=== PATIENT | male | born 1995 | race Caucasian/White ===

== ENCOUNTER 2017-04-25 16:33 | Emergency (ER) | payer BC ==
[~2017-04-25] VITALS: Ht 167.6 cm; Wt 75.0 kg
[2017-04-25 16:50] VITALS: BP 129/69; PULSE 84; RESP 20; TEMP 98; O2SAT 98
--- NOTE | 2017-04-25 16:53 | PD ---
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 This episode was witnessed. Patient passed out suddenly without doing any specific heavy work, and had syncope for approximately 2-3 minutes. No witnessed seizure activity. Patient states he had a similar episode approximately 4 weeks ago and was evaluated at [facility]. He states he saw a neurologist who thought he had "PTO ". States his brother has a similar issue. He was told to eat more salt, and push fluids. 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 He currently takes no medications. He states he did not hurt himself while having his syncopal episode. Patient was brought in by ambulance after receiving IV and 500 mL's normal saline. He has no known drug allergies. [facility] Social History Alcohol Use: Yes Tobacco Use: No Substance Use: No Allergies-Medications (Allergen,Severity, Reaction): Coded Allergies: No Known Allergies (Verified Allergy, Unknown, 04/25/17) Reported Meds & Prescriptions Reported Meds & Active Scripts Active Reported Albuterol Neb (Albuterol Sulfate) 0.63 Mg/3 Ml Neb Unknown Dose NEB BID PRN Zyprexa (Olanzapine) 10 Mg Tab 10 Mg PO HS Hydroxyzine HCl 25 Mg Tab 25 Mg PO BID Trazodone (Trazodone HCl) 50 Mg Tab 50 Mg PO HS Review of Systems Except as stated in HPI: all other systems reviewed are Neg General / Constitutional: No: Fever Eyes: No: Visual changes HENT: No: Headaches Cardiovascular: No: Chest Pain or Discomfort Respiratory: No: Shortness of Breath Gastrointestinal: No: Abdominal Pain Genitourinary: No: Dysuria Musculoskeletal: No: Pain Skin: No Rash Neurologic: Positive: Syncope (see history present illness.), No: Weakness Psychiatric: No: Depression Endocrine: No: Polydipsia Hematologic/Lymphatic: No: Easy Bruising Physical Exam Narrative GENERAL: Patient appears normal and in no acute distress. SKIN: Warm and dry. Normal color. Normal turgor. No diaphoresis. HEAD: Atraumatic. Normocephalic. Nontender. EYES: Pupils equal and round. No scleral icterus. No injection or drainage. ENT: No nasal bleeding or discharge. Mucous membranes pink and moist. Pharynx is clear. Airway is patent. There is no dental injury. There is no injury to the buccal membrane or tongue. NECK: Trachea midline. Nontender. No bony tenderness or step-off. There is full and non-tender. CARDIOVASCULAR: Regular rate and rhythm. No murmurs gallops or rubs appreciated. RESPIRATORY: No accessory muscle use. Clear to auscultation. Breath sounds equal bilaterally. GASTROINTESTINAL: Abdomen soft, non-tender, nondistended. Hepatic and splenic margins not palpable. MUSCULOSKELETAL: Extremities without clubbing, cyanosis, or edema. No obvious deformities. NEUROLOGICAL: Awake and alert. No obvious cranial nerve deficits. Motor grossly within normal limits. Five out of 5 muscle strength in the arms and legs. Normal speech. PSYCHIATRIC: Appropriate mood and affect; insight and judgment normal. Data Data Last Documented VS Vital Signs Date Time Temp Pulse Resp B/P Pulse Ox O2 Delivery O2 Flow Rate FiO2 04/25/17 17:02 77 20 105/54 77 20 132/75 04/25/17 17:01 98 Room Air 04/25/17 16:50 98.0 Orders Electrocardiogram (04/25/17 17:04) Complete Blood Count With Diff (04/25/17 17:04) Comprehensive Metabolic Panel (04/25/17 17:04) Magnesium (Mg) (04/25/17 17:04) Ckmb (Isoenzyme) Profile (04/25/17 17:04) Troponin I (04/25/17 17:04) Urinalysis - C+S If Indicated (04/25/17 17:04) Chest, Single Ap (04/25/17 17:04) Ecg Monitoring (04/25/17 17:04) Iv Access Insert/Monitor (04/25/17 17:04) Oximetry (04/25/17 17:04) Sodium Chloride 0.9% Flush (Ns Flush) (04/25/17 17:15) Sodium Chlor 0.9% 1000 Ml Inj (Ns 1000 M (04/25/17 17:04) Orthostatic Vital Signs (04/25/17 17:04) Labs Laboratory Tests Test 04/25/17 04/25/17 17:30 18:01 White Blood Count 8.9 TH/MM3 Red Blood Count 4.24 MIL/MM3 Hemoglobin 13.4 GM/DL Hematocrit 39.5 % Mean Corpuscular Volume 93.3 FL Mean Corpuscular Hemoglobin 31.6 PG Mean Corpuscular Hemoglobin 33.9 % Concent Red Cell Distribution Width 13.0 % Platelet Count 247 TH/MM3 Mean Platelet Volume 6.8 FL Neutrophils (%) (Auto) 66.0 % Lymphocytes (%) (Auto) 22.7 % Monocytes (%) (Auto) 9.1 % Eosinophils (%) (Auto) 1.8 % Basophils (%) (Auto) 0.4 % Neutrophils # (Auto) 5.9 TH/MM3 Lymphocytes # (Auto) 2.0 TH/MM3 Monocytes # (Auto) 0.8 TH/MM3 Eosinophils # (Auto) 0.2 TH/MM3 Basophils # (Auto) 0.0 TH/MM3 CBC Comment DIFF FINAL Differential Comment Sodium Level 139 MEQ/L Potassium Level 4.0 MEQ/L Chloride Level 107 MEQ/L Carbon Dioxide Level 25.9 MEQ/L Anion Gap 6 MEQ/L Blood Urea Nitrogen 15 MG/DL Creatinine 0.78 MG/DL Estimat Glomerular Filtration 124 ML/MIN Rate Random Glucose 87 MG/DL Calcium Level 7.9 MG/DL Magnesium Level 2.0 MG/DL Total Bilirubin 0.3 MG/DL Aspartate Amino Transf 11 U/L (AST/SGOT) Alanine Aminotransferase 28 U/L (ALT/SGPT) Alkaline Phosphatase 73 U/L Total Creatine Kinase 65 U/L Troponin I LESS THAN 0.02 NG/ML Total Protein 6.7 GM/DL Albumin 3.6 GM/DL Urine Color YELLOW Urine Turbidity CLEAR Urine pH 5.5 Urine Specific [place] 1.014 Urine Protein NEG mg/dL Urine Glucose (UA) NEG mg/dL Urine Ketones NEG mg/dL Urine Occult Blood NEG Urine Nitrite NEG Urine Bilirubin NEG Urine Urobilinogen LESS THAN 2.0 MG/DL Urine Leukocyte Esterase NEG Urine WBC LESS THAN 1 /hpf Urine Mucus FEW /lpf Microscopic Urinalysis Comment CULT NOT INDICATED MDM Medical Decision Making Medical Screen Exam Complete: Yes Emergency Medical Condition: Yes Differential Diagnosis Syncope. Ocular abnormality. Dehydration. 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 Narrative Course Patient appears medically stable at time of exam. EKG is obtained showing no acute findings. IV access is obtained patient is given 1000 mL normal saline. Orthostatics are performed. He showed no obvious changes suggestive of dehydration. Chest x-ray shows no acute findings per radiologist. CBC is unremarkable. CMP shows normal electrolytes, calcium is somewhat low at 7.9. Magnesium is 2.0. Urinalysis is unremarkable. Patient is felt stable for further evaluation on an outpatient basis. Work note for details given. Diagnosis Primary Impression: Syncope Qualified Code: R55 - Syncope, unspecified syncope type Referrals: [facility] call for appointment Patient Instructions: General Instructions, Syncope (ED) Departure Forms: Work Release Enter return to work date: Apr 26, 2017 Additional Instructions: EKG is obtained showing no acute findings. IV access is obtained patient is given 1000 mL normal saline. Orthostatics are performed. He showed no obvious changes suggestive of dehydration. Chest x-ray shows no acute findings per radiologist. CBC is unremarkable. CMP shows normal electrolytes, calcium is somewhat low at 7.9. Magnesium is 2.0. Urinalysis is unremarkable. Patient is felt stable for further evaluation on an outpatient basis. Work note for details given. Med/Other Pt SpecificInfo: No Meds Exist/No RX given Disposition: DISCHARGE HOME Condition: Stable Owen Orozco Apr 25, 2017 16:53
[2017-04-25 17:01] VITALS: BP 124/73; PULSE 72; RESP 20; O2SAT 98
[2017-04-25 17:02] VITALS: BP_SYST 105; BP_SYST 132; BP_DIAS 54; BP_DIAS 75; RESP 20
[2017-04-25] MEDS ORDERED: SODIUM CHLOR 0.9% 1000 ML INJ 1,000 ML IV ONE (17:04)
[2017-04-25] MEDS ORDERED: HYDR-3133 PO (17:06)
[2017-04-25] MEDS ORDERED: ZYPR10TA PO (17:06)
[2017-04-25] MEDS ORDERED: TRAZ50TA12 PO (17:06)
[2017-04-25] MEDS ORDERED: ALBU0.63 NEB (17:06)
[2017-04-25] MEDS ORDERED: SODIUM CHLORIDE 0.9% FLUSH 10 ML FLUSH IVF PRN (17:15)
--- NOTE | 2017-04-25 17:34 | RADRPT ---
EXAM DATE/TIME: 04/25/2017 17:15 [place] COMPARISON: No previous studies available for comparison. INDICATIONS : Syncopal episode. MEDICAL HISTORY : Postural Orthostatic Tachycardia Syndrome. SURGICAL HISTORY : None. ENCOUNTER: Initial ACUITY: 1 day PAIN SCORE: Non-responsive. LOCATION: chest FINDINGS: A single view of the chest demonstrates the lungs to be symmetrically aerated without evidence of mas s, infiltrate or effusion. The cardiomediastinal contours are unremarkable. Osseous structures are intact.CONCLUSION: No acute disease. Lazaro Farmer MD on April 25, 2017 at 17:32 Board Certified Radiologist. This report was verified electronically.
[2017-04-25 17:46] LABS: AUTOMATED NEUTROPHIL # 5.9 TH/MM3 (1.8-7.7); BASOPHIL % 0.4 % (0.0-2.0); EOSINOPHIL # 0.2 TH/MM3 (0-0.4); EOSINOPHIL % 1.8 % (0.0-4.0); HEMATOCRIT 39.5 % (39.0-51.0); HEMO FLAGS DIFF FINAL; LYMPH % 22.7 % (9.0-44.0); MEAN CELL VOLUME 93.3 FL (80.0-100.0); MEAN CORPUSCULAR HEMOGLOBIN 31.6 PG (27.0-34.0); MEAN CORPUSCULAR HGB CONC 33.9 % (32.0-36.0); MONO % 9.1 % (0.0-8.0); PLATELET COUNT 247 TH/MM3 (150-450); RED BLOOD COUNT 4.24 MIL/MM3 (4.50-5.90); WHITE BLOOD COUNT 8.9 TH/MM3 (4.0-11.0)
[2017-04-25 18:00] LABS: ANION GAP 6 MEQ/L (5-15); AST (GOT) 11 U/L (15-37); BICARBONATE 25.9 MEQ/L (21.0-32.0); BLOOD UREA NITROGEN 15 MG/DL (7-18); CHLORIDE 107 MEQ/L (98-107); GLOMERULAR FILTRATION RATE 124 ML/MIN (>89); SODIUM (NA) 139 MEQ/L (136-145)
[2017-04-25 18:01] LABS: ALT (GPT) 28 U/L (12-78)
[2017-04-25 18:05] LABS: ALKALINE PHOSPHATASE 73 U/L (45-117); TOTAL BILIRUBIN ADULT 0.3 MG/DL (0.2-1.0)
[2017-04-25 18:29] LABS: BLOOD, URINE NEG (NEG); COMMENT (UR) CULT NOT INDICATED; CULTURE IF INDICATED CULT NOT INDICATED; GLUCOSE,URINE NEG (NEG); KETONE, URINE NEG (NEG); MUCUS URINE FEW /lpf (OCC); NITRITE,URINE NEG (NEG); PH, URINE 5.5 (5.0-8.5); URINE COLOR YELLOW (YELLW/STRAW)
[2017-04-25 18:32] LABS: CREATINE KINASE 65 U/L (39-308)
--- NOTE | 2017-04-26 15:51 | EKG ---
Date Performed: 04/25/2017 Time Performed: 16:46:06 PTAGE: 22 years EKG: Sinus rhythm POSSIBLE RIGHT VENTRICULAR CONDUCTION DELAY BORDERLINE ECG NO PREVIOUS TRACING DOCTOR: Mitch Baumann Interpretating Date/Time 04/26/2017 15:49:53
== END 2017-04-25 19:05 | disposition home or self-care (01) ==
LOC: NEPD 16:33
DX: R55 Syncope and collapse (principal)
CPT/HCPCS: 71010; 80053; 81001; 82550; 83735; 84484; 85025; 93005; 96360; 99285; J7030